=== PATIENT | male | born 1995 | race Caucasian/White ===

== ENCOUNTER 2018-02-26 18:33 | Emergency (ER) | payer MEDICARE | END 2018-02-26 22:00 | disposition home or self-care (01) | LOC: D.ER 18:33 | DX: L03.116 Cellulitis of left lower limb (principal); R51 Headache ==

== ENCOUNTER 2018-05-04 20:39 | Emergency (ER) | payer MEDICARE ==
[~2018-05-04] VITALS: Ht 172.7 cm; Wt 76.7 kg
[2018-05-04 20:44] VITALS: Ht 172.7 cm; Wt 76.7 kg
[2018-05-04] MEDS ORDERED: KEFLEX500 MG PO (21:23)
[2018-05-04 21:47] VITALS: BP 117/60
== END 2018-05-04 21:49 | disposition home or self-care (01) ==
LOC: D.ER 20:39
DX: S61.411A Laceration without foreign body of right hand, initial encounter (principal); W26.9XXA Contact with unspecified sharp object(s), initial encounter; Y93.11 Activity, swimming; Y92.828 Other wilderness area as the place of occurrence of the external cause

== ENCOUNTER 2020-01-21 15:36 | Emergency (ER) | payer SELFPAY ==
[~2020-01-21] VITALS: Ht 172.7 cm; Wt 84.1 kg
[~2020-01-21 15:36] MED LIST: KEFLEX500 MG PO
[2020-01-21 15:55] VITALS: BP 138/77; Ht 172.7 cm; Wt 84.1 kg
[2020-01-21] MEDS ORDERED: TAMIFLU75 MG PO (17:02)
[2020-01-21] MEDS ORDERED: MUCINEX DM ER1 EAC1 PO (17:02)
== END 2020-01-21 17:17 | disposition home or self-care (01) ==
LOC: D.ER 15:36
DX: J11.1 Influenza due to unidentified influenza virus with other respiratory manifestations (principal)

== ENCOUNTER 2020-04-03 14:49 | Emergency (ER) | payer SELFPAY ==
[~2020-04-03] VITALS: Ht 172.7 cm; Wt 79.4 kg
[~2020-04-03 14:49] MED LIST changes: +MUCINEX DM ER1 EAC1 PO; +TAMIFLU75 MG PO
[2020-04-03 15:12] VITALS: BP 128/73; Ht 172.7 cm; Wt 79.4 kg
[2020-04-03] MEDS ORDERED: ZPAK PO (16:20)
== END 2020-04-03 16:31 | disposition home or self-care (01) ==
LOC: D.ER 14:49
DX: J06.9 Acute upper respiratory infection, unspecified (principal); R42 Dizziness and giddiness; R53.83 Other fatigue

== ENCOUNTER 2020-07-04 11:38 | Emergency (ER) | payer SELFPAY ==
[~2020-07-04] VITALS: Ht 172.7 cm; Wt 91.4 kg
[~2020-07-04 11:38] MED LIST changes: +ZPAK PO
[2020-07-04 11:44] VITALS: Ht 172.7 cm; Wt 91.4 kg
[2020-07-04] MEDS ORDERED: ZOFRAN4 MG PO (13:03)
[2020-07-04 13:45] VITALS: BP 127/83
== END 2020-07-04 13:46 | disposition home or self-care (01) ==
LOC: D.ER 11:38
DX: R51 Headache (principal)

== ENCOUNTER 2021-05-14 18:11 | Emergency (ER) | payer MEDICARE ==
[~2021-05-14] VITALS: Ht 172.7 cm; Wt 87.3 kg
[~2021-05-14 18:11] MED LIST changes: +ZOFRAN4 MG PO
[2021-05-14 18:37] VITALS: BP 131/74; Ht 172.7 cm; Wt 87.3 kg
[2021-05-14 19:59] LABS: SARS-CoV-2 ANTIGEN NEGATIVE- SARS-COV-2 (NEGATIVE)
== END 2021-05-14 20:31 | disposition home or self-care (01) ==
LOC: D.ER 18:11
PROVIDERS: Family Medicine
DX: R09.81 Nasal congestion (principal); R51.9 Headache, unspecified